=== PATIENT | female | born 1950 | race Caucasian/White ===

== ENCOUNTER 2022-02-03 19:52 | Inpatient (IN) | payer OTHER, MEDICARE ==
[2022-02-03] MEDS ORDERED: Ondansetron PF 4 MG/2 ML Vial ONE ×3 (20:04→21:39)
[2022-02-03] MEDS ORDERED: Morphine 4 MG/ML VIAL ONE (20:46)
[2022-02-03] MEDS ORDERED: Lidocaine 1% w/Epinephrine 1:100K 20 ML VIAL ONE (20:47)
[2022-02-03] MEDS ORDERED: Boostrix 0.5 ML (Tdap) VIAL ONE (20:47)
[2022-02-03 21:07] LABS: #Eosinphils 0.1 thou/uL (0.0-0.7); #Lymphocytes 1.7 thou/uL (1.20-3.40); #Monocytes 0.5 thou/uL (0.11-0.59); #Neutrophils 6.9 thou/uL (1.40-6.50); %Basophils 0.3 % (0.0-1.0); %Lymphocytes 18.4 % (21.0-51.0); %Neutrophils 75.3 % (42.0-75.0); Hemoglobin 15.3 g/dL (12.0-16.0); Mean Corpuscular HGB CONC 32.2 g/dL (32.0-36.0); Mean Corpuscular Hemoglobin 28.7 pg (27.0-31.0); Mean Corpuscular Volume 89.3 fL (78.0-98.0); Mean Platelet Volume 7.4 fL (7.4-10.4); Platelet Count 211 thou/uL (130-400); RBC Distribution Width 13.2 % (11.5-14.5); Red Blood Cell (RBC) Count 5.32 mill/uL (4.20-5.40); White Blood Cell (WBC) Count 9.2 thou/uL (4.8-10.8)
[2022-02-03 21:15] LABS: INR-International Normal Ratio 0.9; Prothrombin Time 12.3 sec (12.0-14.7)
[2022-02-03 21:28] LABS: ALT (SGPT) 31 U/L (8-55); AST (SGOT) 29 U/L (5-34); Albumin 3.8 g/dL (3.4-4.8); Alkaline Phosphatase 113 U/L (40-110); Anion Gap 14 mmol/L (10-20); BUN (Urea Nitrogen) 19 mg/dL (9.8-20.1); Bilirubin, Total 0.5 mg/dL (0.2-1.2); Calc. Creatinine Clearance 0 mL/min (70-130); Calcium 9.2 mg/dL (7.8-10.44); Carbon Dioxide 24 mmol/L (23-31); Chloride 105 mmol/L (98-107); Globulin 3.3 g/dL (2.4-3.5); Glucose 312 mg/dL (80-115); Potassium 4.3 mmol/L (3.5-5.1); Protein, Total 7.1 g/dL (5.8-8.1); Sodium 139 mmol/L (136-145)
[2022-02-03] MEDS ORDERED: Dextrose 50% Abboject 50 ML SYRINGE SLOW IVP PRN (21:40)
[2022-02-03] MEDS ORDERED: Morphine 2 MG/ML VIAL SLOW IVP PRN (21:40)
[2022-02-03] MEDS ORDERED: Promethazine HCl 25 MG/ML VIAL IM PRN (21:40)
[2022-02-03] MEDS ORDERED: Dextrose 5% in Water 1,000 ML IV PRN (21:40)
[2022-02-03] MEDS ORDERED: hydrALAZINE 20 MG/ML VIAL SLOW IVP PRN (21:40)
[2022-02-03] MEDS ORDERED: Ondansetron PF 4 MG/2 ML Vial IVP PRN (21:40)
[2022-02-03] MEDS ORDERED: Cyclobenzaprine 10 MG TAB PO PRN (21:46)
[2022-02-03] MEDS ORDERED: traMADol HCl 50 MG TAB PO PRN (21:46)
[2022-02-03] MEDS ORDERED: Ketorolac Tromethamine 30 MG/ML VIAL IVP SCH (22:00)
[2022-02-03 22:03] LABS: Hemoglobin A1c 9.1 % (4.0-6.0)
[2022-02-03 23:36] LABS: SARS-CoV-2 NAA Rapid Test Not Detected (NotDetected)
[2022-02-03] MEDS ORDERED: Insulin Glargine 30 UNITS/0.3 ML VIAL SC SCH (23:59)
[2022-02-04] MEDS: Acetaminophen 500 MG TAB PO SCH ×4 (00:08→17:46)
[2022-02-04] MEDS: traMADol HCl 50 MG TAB PO SCH ×4 (00:10→17:45)
[2022-02-04] MEDS: Sodium Chloride 0.9% 1,000 ML IV SCH ×3 (00:21→16:11)
[2022-02-04 01:31] VITALS: BMI 26.4
[2022-02-04 05:01] LABS: Anion Gap 14 mmol/L (10-20); BUN (Urea Nitrogen) 18 mg/dL (9.8-20.1); Calc. Creatinine Clearance 77 mL/min (70-130); Calcium 8.8 mg/dL (7.8-10.44); Carbon Dioxide 25 mmol/L (23-31); Chloride 106 mmol/L (98-107); Glucose 186 mg/dL (80-115); Potassium 4.4 mmol/L (3.5-5.1); Sodium 141 mmol/L (136-145)
[2022-02-04] MEDS: Ketorolac Tromethamine 30 MG/ML VIAL IVP SCH ×3 (05:59→17:44)
[2022-02-04] MEDS: Famotidine 20 MG TAB PO SCH ×2 (08:07→20:18)
[2022-02-04] MEDS: Senokot S 8.6-50 MG TAB PO SCH ×2 (08:07→20:18)
[2022-02-04] MEDS: Polyethylene Glycol 3350 17 GM Packet PO SCH (08:08)
[2022-02-04] MEDS ORDERED: Ondansetron ODT 4 MG TAB PO PRN (09:13)
[2022-02-04] MEDS: HumaLOG 300 UNITS/3 ML VIAL SC PRN (11:45)
[2022-02-04] MEDS: Insulin Glargine 30 UNITS/0.3 ML VIAL SC SCH (20:17)
[2022-02-04] MEDS: Atorvastatin Calcium 40 MG TAB PO SCH (20:18)
[2022-02-04] MEDS ORDERED: Insulin Glargine 30 UNITS/0.3 ML VIAL SC SCH (21:00)
[2022-02-05] MEDS: Acetaminophen 500 MG TAB PO SCH ×5 (00:02→23:26)
[2022-02-05] MEDS: Ketorolac Tromethamine 30 MG/ML VIAL IVP SCH ×2 (00:03→06:03)
[2022-02-05] MEDS: traMADol HCl 50 MG TAB PO SCH ×5 (00:03→23:27)
[2022-02-05] MEDS: HumaLOG 300 UNITS/3 ML VIAL SC PRN (00:04)
[2022-02-05] MEDS: Escitalopram Oxalate 10 mg Tablet PO SCH (07:48)
[2022-02-05] MEDS: Famotidine 20 MG TAB PO SCH ×2 (07:48→21:12)
[2022-02-05] MEDS: Polyethylene Glycol 3350 17 GM Packet PO SCH (07:49)
[2022-02-05] MEDS: Senokot S 8.6-50 MG TAB PO SCH ×2 (07:49→21:12)
[2022-02-05] MEDS: Sodium Chloride 0.9% 1,000 ML IV SCH ×4 (08:30→21:13)
[2022-02-05] MEDS ORDERED: Non-Formulary Item 1 EACH (Atorvastatin Calcium [Lipitor] 80 MG Tablet) PO SCH (09:00)
[2022-02-05] MEDS ORDERED: EPINEPHrine 1 MG/ML AMP ONE (09:28)
[2022-02-05] MEDS ORDERED: Bupivacaine PF 0.5% 30 ML VIAL ONE (09:28)
[2022-02-05] MEDS ORDERED: Sodium Chloride 0.9% 100 ML ONE (09:32)
[2022-02-05] MEDS ORDERED: CEFAZOLIN 1 GM VIAL ONE ×2 (09:32→09:42)
[2022-02-05] MEDS ORDERED: fentaNYL Citrate/PF 100 MCG/2 ML SYRINGE ONE (09:36)
[2022-02-05] MEDS ORDERED: Famotidine/PF 20 mg/2ml Vial ONE (09:38)
[2022-02-05] MEDS ORDERED: Tranexamic Acid 1,000 MG/10 ML VIAL ONE (09:49)
[2022-02-05] MEDS ORDERED: Lidocaine 1% PF 5 ML VIAL ONE (09:52)
[2022-02-05] MEDS ORDERED: Ondansetron PF 4 MG/2 ML Vial ONE (09:52)
[2022-02-05] MEDS ORDERED: ePHEDrine 50 MG/ML VIAL ONE (09:52)
[2022-02-05] MEDS ORDERED: Rocuronium Bromide 10 MG/ML (10ML VIAL) ONE (09:52)
[2022-02-05] MEDS ORDERED: Metoclopramide HCl 10 MG/2 ML VIAL ONE (09:52)
[2022-02-05] MEDS ORDERED: PHENYLEPHRINE-NS 100 MCG/ML 10 ML SYRINGE ONE (09:52)
[2022-02-05] MEDS ORDERED: Glycopyrrolate 0.2 MG/ML 5 ML SYRINGE ONE (09:52)
[2022-02-05] MEDS ORDERED: PROPOFOL 200 MG/20 ML VIAL ONE (09:52)
[2022-02-05] MEDS ORDERED: Morphine 2 MG/ML VIAL SLOW IVP PRN (11:11)
[2022-02-05] MEDS ORDERED: HYDROcodone/Acetaminophen 10/325 mg Tablet PO PRN ×2 (11:11)
[2022-02-05] MEDS ORDERED: Morphine 4 MG/ML VIAL SLOW IVP PRN (11:11)
[2022-02-05] MEDS ORDERED: Communication Order-Pharmacy FS SCH (11:15)
[2022-02-05] MEDS ORDERED: TETANUS AND DIPHTHERIA TOX/PF 0.5 ML DISP.SYRIN IM SCH (11:15)
[2022-02-05] MEDS ORDERED: Promethazine HCl 25 MG/ML VIAL IM PRN (11:18)
[2022-02-05] MEDS ORDERED: Promethazine HCl 25 MG/ML VIAL IVPB PRN (11:18)
[2022-02-05] MEDS ORDERED: Ondansetron HCl/PF 4 MG/2 ML Vial IVP PRN (11:18)
[2022-02-05] MEDS: Rivaroxaban 10 MG TAB PO SCH (17:33)
[2022-02-05] MEDS: CEFAZOLIN 2 GM in Sodium Chloride 0.9% 100 ML IVPB SCH (17:34)
[2022-02-05] MEDS: Atorvastatin Calcium 40 MG TAB PO SCH (21:12)
[2022-02-05] MEDS: Insulin Glargine 30 UNITS/0.3 ML VIAL SC SCH (21:12)
[2022-02-05] MEDS: Aspirin 81 mg Enteric Coated Tablet PO SCH (21:12)
[2022-02-06] MEDS: CEFAZOLIN 2 GM in Sodium Chloride 0.9% 100 ML IVPB SCH (02:11)
[2022-02-06] MEDS: Acetaminophen 500 MG TAB PO SCH ×4 (05:54→23:52)
[2022-02-06] MEDS: traMADol HCl 50 MG TAB PO SCH ×4 (05:55→23:51)
[2022-02-06 06:07] LABS: #Eosinphils 0.2 thou/uL (0.0-0.7); #Lymphocytes 1.4 thou/uL (1.20-3.40); #Monocytes 0.7 thou/uL (0.11-0.59); #Neutrophils 6.2 thou/uL (1.40-6.50); %Eosinophils 1.9 % (0.0-10.0); %Lymphocytes 16.9 % (21.0-51.0); %Monocytes 8.1 % (0.0-10.0); Mean Corpuscular HGB CONC 30.6 g/dL (32.0-36.0); Mean Corpuscular Hemoglobin 27.8 pg (27.0-31.0); Mean Platelet Volume 7.6 fL (7.4-10.4); Platelet Count 168 thou/uL (130-400); RBC Distribution Width 13.2 % (11.5-14.5); Red Blood Cell (RBC) Count 4.33 mill/uL (4.20-5.40); White Blood Cell (WBC) Count 8.5 thou/uL (4.8-10.8)
[2022-02-06] MEDS: Sodium Chloride 0.9% 1,000 ML IV SCH (06:24)
[2022-02-06 06:28] LABS: ALT (SGPT) 16 U/L (8-55); AST (SGOT) 27 U/L (5-34); Albumin 2.5 g/dL (3.4-4.8); Alkaline Phosphatase 54 U/L (40-110); Anion Gap 9 mmol/L (10-20); BUN (Urea Nitrogen) 12 mg/dL (9.8-20.1); Bilirubin, Total 0.5 mg/dL (0.2-1.2); Calc. Creatinine Clearance 104 mL/min (70-130); Calcium 7.8 mg/dL (7.8-10.44); Carbon Dioxide 24 mmol/L (23-31); Chloride 111 mmol/L (98-107); Globulin 2.3 g/dL (2.4-3.5); Glucose 63 mg/dL (80-115); Potassium 3.4 mmol/L (3.5-5.1); Protein, Total 4.8 g/dL (5.8-8.1); Sodium 141 mmol/L (136-145)
[2022-02-06 07:50] LABS: Magnesium 1.5 mg/dL (1.6-2.6)
[2022-02-06] MEDS: Escitalopram Oxalate 10 mg Tablet PO SCH (09:01)
[2022-02-06] MEDS: Aspirin 81 mg Enteric Coated Tablet PO SCH (09:01)
[2022-02-06] MEDS: Senokot S 8.6-50 MG TAB PO SCH ×2 (09:02→21:23)
[2022-02-06] MEDS: Polyethylene Glycol 3350 17 GM Packet PO SCH (09:02)
[2022-02-06] MEDS: Famotidine 20 MG TAB PO SCH ×2 (09:02→21:23)
[2022-02-06] MEDS ORDERED: Magnesium 2 GM/50 ML(in water) 3 GM in Premix Bag 1 BAG IVPB SCH (17:15)
[2022-02-06] MEDS ORDERED: Potassium Phosphate 30 MMOL, Magnesium Sulfate 3 GM in Sodium Chloride 0.9% 250 ML 250 ML IVPB SCH (17:45)
[2022-02-06] MEDS: Rivaroxaban 10 MG TAB PO SCH (18:25)
[2022-02-06] MEDS ORDERED: metFORMIN 500 MG TAB PO SCH (21:00)
[2022-02-06] MEDS: Atorvastatin Calcium 40 MG TAB PO SCH (21:23)
[2022-02-07] MEDS: Acetaminophen 500 MG TAB PO SCH ×3 (06:02→17:14)
[2022-02-07] MEDS: traMADol HCl 50 MG TAB PO SCH ×3 (06:02→17:15)
[2022-02-07 06:13] LABS: Hemoglobin 11.6 g/dL (12.0-16.0)
[2022-02-07 06:44] LABS: Anion Gap 12 mmol/L (10-20); BUN (Urea Nitrogen) 15 mg/dL (9.8-20.1); Calc. Creatinine Clearance 98 mL/min (70-130); Calcium 8.4 mg/dL (7.8-10.44); Carbon Dioxide 22 mmol/L (23-31); Chloride 110 mmol/L (98-107); Magnesium 2.1 mg/dL (1.6-2.6); Phosphorus 2.3 mg/dL (2.3-4.7); Potassium 3.5 mmol/L (3.5-5.1); Sodium 140 mmol/L (136-145)
[2022-02-07 06:59] LABS: Glucose 59 mg/dL (80-115)
[2022-02-07] MEDS ORDERED: Rivaroxaban 10 MG TAB PO SCH ×2 (08:00→09:00)
[2022-02-07] MEDS: Escitalopram Oxalate 10 mg Tablet PO SCH (08:59)
[2022-02-07] MEDS: Rivaroxaban 15 MG TAB PO SCH ×2 (08:59→17:15)
[2022-02-07] MEDS ORDERED: Hydrochlorothiazide 25 MG TAB PO SCH (09:00)
[2022-02-07] MEDS: Famotidine 20 MG TAB PO SCH (09:00)
[2022-02-07] MEDS: Senokot S 8.6-50 MG TAB PO SCH (09:01)
[2022-02-07] MEDS: Polyethylene Glycol 3350 17 GM Packet PO SCH (09:01)
[2022-02-07 15:48] VITALS: BP 147/75; TEMP 98.5
== END 2022-02-07 17:35 | DRG 522 ==
LOC: ERS 19:52 → SJJU 21:39
PROVIDERS: ADMIT Surgery; ATTEND Surgery
PROC: 0HQ1XZZ Repair Face Skin, External Approach (ICD-10-PCS; 2022-02-03)
PROC: 0SR90JZ Replacement of Right Hip Joint with Synthetic Substitute, Open Approach (ICD-10-PCS; principal; 2022-02-05)
DX: S72.001A Fracture of unspecified part of neck of right femur, initial encounter for closed fracture (principal); S02.31XA Fracture of orbital floor, right side, initial encounter for closed fracture; I82.411 Acute embolism and thrombosis of right femoral vein; I69.954 Hemiplegia and hemiparesis following unspecified cerebrovascular disease affecting left non-dominant side; Z20.822 Contact with and (suspected) exposure to COVID-19; I10 Essential (primary) hypertension; E11.9 Type 2 diabetes mellitus without complications; S01.81XA Laceration without foreign body of other part of head, initial encounter; S01.111A Laceration without foreign body of right eyelid and periocular area, initial encounter; F41.9 Anxiety disorder, unspecified; W18.30XA Fall on same level, unspecified, initial encounter; E78.5 Hyperlipidemia, unspecified; Z79.01 Long term (current) use of anticoagulants; Z90.49 Acquired absence of other specified parts of digestive tract; Z90.710 Acquired absence of both cervix and uterus; Z88.5 Allergy status to narcotic agent; Z79.4 Long term (current) use of insulin; Z79.899 Other long term (current) drug therapy; Y92.833 Campsite as the place of occurrence of the external cause
CPT/HCPCS: 12013; 36415; 36416; 70450; 70486; 71045; 72125; 72170; 80048; 80053; 83036; 83735; 84100; 85014; 85018; 85025; 85610; 86850; 86900; 86901; 90471; 90715; 96374; 96375; 96376; C1776; J0171; J0690; J1815; J1885; J2270; J2405; J2550; J2704; J2765; J3475; J3490; J7050; S0020; S0028; U0002